=== PATIENT | male | born 1950 | race Caucasian/White ===

== ENCOUNTER 2017-06-20 06:35 | Emergency (ER) | payer MEDICARE, OTHER ==
[2017-06-20] MEDS ORDERED: KETOROLAC TROMETHAMINE 60 MG/2 ML SDV IM ONE (07:30)
[2017-06-20] MEDS ORDERED: LIDOCAINE 5% (700 MG) TRANSDERMAL ADH..PATCH TP ONE (07:30)
--- NOTE | 2017-06-20 07:34 | ER Document Report ---
ED General - General Chief Complaint: Back Pain Stated Complaint: BACK PAIN Time Seen by Provider: 06/20/17 07:27 TRAVEL OUTSIDE OF THE [place] IN LAST 30 DAYS: No - HPI Patient complains to provider of: Low back low back pain right leg pain Notes: Patient coming in for exacerbation of chronic low back pain. Patient states has a history of herniated disc in the lower spine this was also seen on MRI performed last year. Patient states last 2 days played 2 rounds of golf this morning increased pain states weakness in his right leg patient states he is having ambulate with a cane. Patient states not had back pain once before. Denies any numbness or tingling denies any saddle anesthesias denies any bowel or bladder incontinence. Denies any fevers or chills. Patient is seen ambulating with a cane. Denies any other trauma other than playing golf for the last 2 days. - Related Data Allergies/Adverse Reactions: No Known Allergies Allergy (Unverified 06/20/17 06:38) Past Medical History - Social History Smoking Status: Unknown if Ever Smoked Family History: Reviewed & Not Pertinent Patient has suicidal ideation: No Patient has homicidal ideation: No Renal/ Medical History: Denies: Hx Peritoneal Dialysis Review of Systems - Review of Systems Constitutional: No symptoms reported EENT: No symptoms reported Cardiovascular: No symptoms reported Respiratory: No symptoms reported Gastrointestinal: No symptoms reported Genitourinary: No symptoms reported Male Genitourinary: No symptoms reported Musculoskeletal: Back pain Skin: No symptoms reported Hematologic/Lymphatic: No symptoms reported Neurological/Psychological: No symptoms reported -: Yes All other systems reviewed and negative Physical Exam - Vital signs Vitals: Temp Pulse Resp BP Pulse Ox 97.6 F 70 22 H 145/92 H 97 06/20/17 06:38 06/20/17 06:38 06/20/17 06:38 06/20/17 06:38 06/20/17 06:38 Interpretation: Normal - General General appearance: Appears well, Alert - HEENT Head: Normocephalic, Atraumatic Eyes: Normal Pupils: PERRL - Respiratory Respiratory status: No respiratory distress - Cardiovascular Murmur: No - Abdominal Inspection: Normal - Back Back: Normal, Tender - Mild tenderness with muscle spasm on the right paraspinal region. Patient is able to dorsiflex and plantarflex with normal strength in the right leg. Sensation of the right leg is intact. - Extremities General upper extremity: Normal inspection, Nontender, Normal color, Normal ROM , Normal temperature General lower extremity: Normal inspection, Nontender, Normal color, Normal temperature, Other - Patient ambulating with a cane patient does have difficulty in standing - Neurological Neuro grossly intact: Yes Cognition: Normal Orientation: AAOx4 Bailey Coma Scale Eye Opening: Spontaneous Bailey Coma Scale Verbal: Oriented Paulina Coma Scale Motor: Obeys Commands Paulina Coma Scale Total: 15 Speech: Normal Sensory: Normal - Psychological Associated symptoms: Normal affect, Normal mood - Skin Skin Temperature: Warm Skin Moisture: Dry Skin Color: Normal Course - Re-evaluation Re-evalutation: 06/20/17 07:49 The patient presents with low back pain without signs of spinal cord compression , cauda equina syndrome, infection, aneurysm, or other serious etiology. The patient is neurologically intact. Given the extremely low risk of these diagnoses further testing and evaluation for these possibilities does not appear to be indicated at this time. The patient has been instructed to return if the symptoms worsen or change in any way. Patient educated on use of Motrin and Tylenol ice and warm packs. Patient is encouraged follow-up primary care physician return to ER symptoms worsen - Vital Signs Vital signs: Temp Pulse Resp BP Pulse Ox 97.6 F 70 22 H 145/92 H 97 06/20/17 06:38 06/20/17 06:38 06/20/17 06:38 06/20/17 06:38 06/20/17 06:38 Discharge - Discharge Clinical Impression: Back pain Qualifiers: Back pain location: back pain in other location Chronicity: unspecified Qualified Code(s): M54.89 - Other dorsalgia Condition: Good Disposition: HOME, SELF-CARE Instructions: Ice Packs ([facility]), Low Back Pain ([facility]), Oral Narcotic Medication ( [facility]), Warm Packs ([facility]) Additional Instructions: Examination today shows some slight muscle spasm on the right side of the back more likely contributing to some of your pain. Treatment for any back pain is ice anti-inflammatory medication and rest. Would recommend follow-up with your primary care physician he also may follow-up with the chiropractor provided. Take medications as prescribed. Return to the ER symptoms worsen. If he received pain relief with the lidocaine patch he may ask her pharmacist about [id number] lidocaine cream Prescriptions: Ibuprofen [Motrin 600 mg Tablet] 600 mg PO Q8HP PRN #90 tablet PRN Reason: Hydrocodone Bit/Acetaminophen [Hydrocodon-Acetaminophen 5-325] 1 each PO Q6 #30 tablet Prednisone [Deltasone] 60 mg PO DAILY #24 tablet Forms: Return to Work Referrals: [facility] [[facility]CTOR] - Follow up as needed
[2017-06-20 08:06] VITALS: BP 142/84
== END 2017-06-20 08:05 | disposition home or self-care (01) ==
LOC: ER 06:35
DX: M54.89 Other dorsalgia (principal); M54.9 Dorsalgia, unspecified; G89.29 Other chronic pain; R53.1 Weakness
CPT/HCPCS: 99283

== ENCOUNTER → 2017-07-01 | Outpatient (CLI) | payer MEDICARE, OTHER ==
--- NOTE | 2017-07-01 10:05 | RADIOLOGY REPORT (SQ) ---
EXAM DESCRIPTION: MRI LUMBAR SPINE WITHOUT COMPLETED DATE/TIME: 07/01/2017 8:54 am REASON FOR STUDY: OTHER INTERVERTEBRAL DISC DEGENERATION, LUMBAR REGION (M51.36) M51.36 OTHER INTER VERTEBRAL DISC DEGENERATION, LUMBAR REGION COMPARISON: 03/27/2016. TECHNIQUE: Sagittal and Axial imaging includes T1, T2, STIR and gradient echo sequences. Coronal T2/ HASTE imaging. LIMITATIONS: None. FINDINGS: VISUALIZED UPPER ABDOMEN: Limited evaluation. No acute or suspicious findings suggested. SEGMENTATION: No transitional anatomy. The lowest well-developed disc space is labeled L5-S1. ALIGNMENT: Anatomic. VERTEBRAE: Intact. BONE MARROW: Normal. No marrow replacement or reactive changes. DISC SIGNAL: Decreased height and signal of the L3-L4 and L4-L5 discs. POSTERIOR ELEMENTS: Generally intact. No pars defect evident. HARDWARE: None in the spine. CORD AND CONUS: Normal in size and signal intensity. Conus at the appropriate level. SOFT TISSUES: No aortic aneurysm seen. No bulky retroperitoneal adenopathy or mass. No paraspinal mas s or fluid. L1-L2: No significant spinal stenosis or exit foraminal stenosis. L2-L3: No significant spinal stenosis or exit foraminal stenosis. L3-L4: Mild diffuse posterior annular disc bulge. Moderate facet arthropathy. Right paracentral dis c herniation with right lateral recess stenosis. Moderate bilateral exit foraminal stenosis. L4-L5: Diffuse posterior annular disc bulge. Moderate facet arthropathy. Mild spinal stenosis and m oderate to severe exit foraminal stenosis. L5-S1: No significant spinal stenosis or exit foraminal stenosis. LOWER THORACIC: Incompletely imaged. No stenosis seen. SACRUM: Visualized upper sacrum intact. OTHER: No other significant findings. IMPRESSION: CHRONIC DEGENERATIVE DISC DISEASE AT L3-L4 AND L4-L5 DESCRIBED. RIGHT PARACENTRAL DI SC HERNIATION AT L3-L4 WITH RIGHT LATERAL RECESS STENOSIS. NO SIGNIFICANT CHANGE FROM THE PRIOR STUD Y. TECHNICAL DOCUMENTATION: JOB ID: [id number]- All Rights Reserved
== END ==
LOC: RAD 07:50
PROVIDERS: ATTEND Family Medicine
DX: M51.36 Other intervertebral disc degeneration, lumbar region (principal); M51.26 Other intervertebral disc displacement, lumbar region
CPT/HCPCS: 72148

== ENCOUNTER → 2017-11-19 | Outpatient (CLI) | payer MEDICARE, OTHER ==
[~2017-11-19] MED LIST: EPHEDRINE SULFATE INJ 50 MG/1 ML AMPULE ONE
--- NOTE | 2017-11-19 16:05 | RADIOLOGY REPORT (SQ) ---
EXAM DESCRIPTION: CT HEAD WITHOUT COMPLETED DATE/TIME: 11/19/2017 3:09 pm REASON FOR STUDY: VERTIGO R42 DIZZINESS AND GIDDINESS COMPARISON: None. TECHNIQUE: Axial images acquired through the brain without intravenous contrast. Images reviewed wi th bone, brain and subdural windows. Additional sagittal and coronal reconstructions were generated. Images stored on PACS. All CT scanners at this facility use dose modulation, iterative reconstruction, and/or weight based d osing when appropriate to reduce radiation dose to as low as reasonably achievable (ALARA). [facility]: Dose Right [facility]: CareDose [facility]: Dose Right [facility]: Teradose 4D [facility]: TrustID RADIATION DOSE: 48.72 mGy. LIMITATIONS: None. FINDINGS: VENTRICLES: Normal size and contour. CEREBRUM: No masses. No hemorrhage. No midline shift. No evidence for acute infarction. Normal gra y/white matter differentiation. No areas of low density in the white matter. CEREBELLUM: No masses. No hemorrhage. No alteration of density. No evidence for acute infarction. EXTRAAXIAL SPACES: No fluid collections. No masses. ORBITS AND GLOBE: No intra- or extraconal masses. Normal contour of globe without masses. CALVARIUM: No fracture. PARANASAL SINUSES: Fluid in the ethmoid and left maxillary sinuses. SOFT TISSUES: No mass or hematoma. OTHER: No other significant finding. IMPRESSION: NORMAL BRAIN CT WITHOUT CONTRAST. EVIDENCE OF ACUTE STROKE: NO. COMMENT: Quality ID # [id number]: Final reports with documentation of one or more dose reduction techniques (e.g., Automated exposure control, adjustment of the mA and/or kV according to patient size, use of iterative reconstruction technique) TECHNICAL DOCUMENTATION: JOB ID: [id number] [employer]- All Rights Reserved Reading location - IP/workstation name: [email or web address]
--- NOTE | 2017-11-19 16:30 | RADIOLOGY REPORT (SQ) ---
EXAM DESCRIPTION: CHEST 2 VIEWS COMPLETED DATE/TIME: 11/19/2017 3:36 pm REASON FOR STUDY: (Z87.891) PERSONAL USE OF NICOTINE DEPENDENCE COMPARISON: None. EXAM PARAMETERS: NUMBER OF VIEWS: two views TECHNIQUE: Digital Frontal and Lateral radiographic views of the chest acquired. RADIATION DOSE: NA LIMITATIONS: none FINDINGS: LUNGS AND PLEURA: No opacities, masses or pneumothorax. No pleural effusion. MEDIASTINUM AND HILAR STRUCTURES: No masses or contour abnormalities. HEART AND VASCULAR STRUCTURES: Heart normal size. No evidence for failure. BONES: No acute findings. HARDWARE: None in the chest. OTHER: No other significant finding. IMPRESSION: NO ACUTE RADIOGRAPHIC FINDING IN THE CHEST. TECHNICAL DOCUMENTATION: JOB ID: [id number] [employer]- All Rights Reserved Reading location - IP/workstation name: [email or web address]
== END ==
LOC: RAD 14:46
PROVIDERS: ATTEND Family Medicine
DX: R42 Dizziness and giddiness (principal); Z87.891 Personal history of nicotine dependence
CPT/HCPCS: 70450; 71046